=== PATIENT | male | born 1985 | race African-American/Black ===

== ENCOUNTER 2018-05-22 12:27 | Emergency (ER) | payer OTHER ==
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
[2018-05-22 13:48] VITALS: BP 134/97
== END 2018-05-22 13:57 | disposition home or self-care (01) ==
DX: R07.89 Other chest pain (principal); W22.11XA Striking against or struck by driver side automobile airbag, initial encounter; V49.49XA Driver injured in collision with other motor vehicles in traffic accident, initial encounter; Y92.410 Unspecified street and highway as the place of occurrence of the external cause; Y99.9 Unspecified external cause status